=== PATIENT | male | born 1990 | race Caucasian/White ===

== ENCOUNTER 2018-10-28 15:40 | Inpatient (IN) | payer OTHER, MEDICAID ==
[~2018-10-28] VITALS: Ht 177.8 cm; Wt 53.1 kg
[2018-10-28] MEDS ORDERED: HALOPERIDOL 5 MG TABLET PO PRN (19:45)
[2018-10-28 20:36] VITALS: BP 110/70
[2018-10-28 20:58] VITALS: BP 105/71
[2018-10-28] MEDS ORDERED: IBUPROFEN 400 MG TABLET PO PRN (21:15)
[2018-10-28] MEDS ORDERED: ACETAMINOPHEN 325 MG TABLET PO PRN (21:15)
[2018-10-28] MEDS ORDERED: LOPERAMIDE HCL 2 MG CAPSULE PO PRN (21:15)
[2018-10-28] MEDS ORDERED: ALBUTEROL SULFATE HFA 90 MCG/PUFF 8 GM INHALER IH PRN (21:15)
[2018-10-28] MEDS ORDERED: GuaiFENesin/D-METHORPHAN [SUGAR-FREE] 200-20MG/10 ML SYRUP UDCUP PO PRN (21:15)
[2018-10-28] MEDS ORDERED: DOCUSATE SODIUM 100 MG CAPSULE PO PRN (21:15)
[2018-10-28] MEDS ORDERED: MAG HYDROX/AL HYDROX/SIMETH ES 30 ML SUSPENSION UDCUP PO PRN (21:15)
[2018-10-28] MEDS ORDERED: CloNIDine HCL 0.1 MG TABLET PO PRN (21:15)
[2018-10-28] MEDS ORDERED: ONDANSETRON HCL 4 MG TABLET PO PRN (21:15)
[2018-10-28] MEDS ORDERED: PETROLATUM,WHITE 71 GM JELLY TP PRN (21:15)
[2018-10-28] MEDS ORDERED: MAGNESIUM HYDROXIDE SUSPENSION 30 ML UDCUP PO PRN (21:15)
[2018-10-28] MEDS: ZOLPIDEM TARTRATE 10 MG TABLET PO PRN (21:55)
[2018-10-29 06:20] VITALS: BP 110/67
[2018-10-29 08:00] VITALS: BP 126/73
[2018-10-29 08:51] LABS: BASOPHILS % (AUTO) 0.5 % (0.0-2.0); EOSINOPHILS % (AUTO) 3.8 % (1.0-6.0); HEMATOCRIT 46.1 % (41-53); HEMOGLOBIN 15.2 g/dL (13.5-17.5); LYMPHOCYTES # (AUTO) 2.1 K/uL (1.0-4.8); LYMPHOCYTES % (AUTO) 31.3 % (22.0-44.0); MEAN CORPUSCULAR HEMOGLOBIN 30.2 pg (26.0-34.0); MEAN CORPUSCULAR HGB CONC 33.1 G/dL (31.0-37.0); MEAN CORPUSCULAR VOLUME 91 fL (80-100); MONOCYTES # (AUTO) 0.6 K/uL (0.1-1.0); MONOCYTES % (AUTO) 8.8 % (2.0-9.0); NEUTROPHILS # (AUTO) 3.8 K/uL (1.8-7.7); NEUTROPHILS % (AUTO) 55.6 % (40.0-70.0); PLATELET COUNT (AUTO) 240 K/uL (150-450); RED BLOOD CELL COUNT(AUTO) 5.05 MIL/uL (4.50-5.90); RED CELL DISTRIBUTION WIDTH 12.9 % (11.5-14.5)
[2018-10-29] MEDS: NICOTINE 14 MG/24 HOUR PATCH TD PRN (09:15)
[2018-10-29 09:38] LABS: ALANINE AMINOTRANSFERASE 63 U/L (12-78); ALBUMIN 3.7 g/dL (3.4-5.0); ALKALINE PHOSPHATASE 68 U/L (46-116); ANION GAP 4 mmol/L (8-16); ASPARTATE AMINOTRANSFERASE 34 U/L (15-37); BILIRUBIN,TOTAL 0.4 mg/dL (0.1-1.0); CALCIUM, TOTAL 9.3 mg/dL (8.8-10.5); CARBON DIOXIDE 33 mmol/L (22-29); CHLORIDE 102 mmol/L (98-107); CHOL/HDL RATIO 3.2 (4.2-7.3); CHOLESTEROL 142 mg/dL (131-200); CREATININE 0.77 mg/dL (0.60-1.30); FREE T4 (FREE THYROXINE) 0.66 ng/dL (0.76-1.46); GLOMERULAR FILTR. RATE CALC > 60 mL/min (>60); GLUCOSE,RANDOM 88 mg/dL (70-110); HDL CHOLESTEROL 44 mg/dL (40-60); LDL CHOL (CALC.) 84 mg/dL (0-130); POTASSIUM 3.5 mmol/L (3.5-5.1); SODIUM SERUM 139 mmol/L (136-145); THYROID STIMULATING HORMONE 0.84 uIU/mL (0.36-3.74); TOTAL PROTEIN, SERUM 7.7 g/dL (6.4-8.2); TRIGLYCERIDES 70 mg/dL (15-150); UREA NITROGEN, BLOOD 21 mg/dL (7-18)
[2018-10-29 09:40] LABS: HEMOGLOBIN A1C 5.6 % (4.5-6.2)
[2018-10-29 16:00] VITALS: BP 123/67
[2018-10-29] MEDS: LORazepam 2 MG TABLET PO PRN (16:29)
[2018-10-29] MEDS: OLANZapine 5 MG RAPDIS TABLET PO SCH (16:29)
[2018-10-29] MEDS: ZOLPIDEM TARTRATE 10 MG TABLET PO PRN (20:31)
[2018-10-30 04:46] VITALS: BP 115/70
[2018-10-30 08:08] VITALS: BP 110/70
[2018-10-30] MEDS: OLANZapine 5 MG RAPDIS TABLET PO SCH ×2 (08:08→16:20)
[2018-10-30] MEDS: NICOTINE 14 MG/24 HOUR PATCH TD PRN (08:24)
[2018-10-30 16:00] VITALS: BP 124/62
[2018-10-30] MEDS: LORazepam 2 MG TABLET PO PRN (16:20)
[2018-10-30] MEDS: ZOLPIDEM TARTRATE 10 MG TABLET PO PRN (21:04)
[2018-10-31 05:30] VITALS: BP 122/72
[2018-10-31] MEDS: OLANZapine 5 MG RAPDIS TABLET PO SCH ×2 (08:10→16:38)
[2018-10-31 08:47] VITALS: BP 120/69
[2018-10-31 14:18] VITALS: BP 121/70
[2018-10-31 17:50] VITALS: BP 123/73
[2018-11-01 06:55] VITALS: BP 122/78
[2018-11-01 08:45] VITALS: BP 125/86
[2018-11-01] MEDS: OLANZapine 5 MG RAPDIS TABLET PO SCH ×2 (08:51→16:52)
[2018-11-01 16:42] VITALS: BP 119/60
[2018-11-01] MEDS: ZOLPIDEM TARTRATE 10 MG TABLET PO PRN (20:38)
[2018-11-02 04:48] VITALS: BP 120/82
[2018-11-02] MEDS ORDERED: OLAN5TAB2 PO (04:48)
== END 2018-11-02 07:05 | disposition home or self-care (01) | DRG 885 ==
LOC: B3A 20:33 → B2S 10-31 13:45
PROVIDERS: ADMIT Psychiatry & Neurology Child & Adolescent Psychiatry; ATTEND Psychiatry & Neurology Child & Adolescent Psychiatry
DX: F25.0 Schizoaffective disorder, bipolar type (principal); R45.851 Suicidal ideations; F17.200 Nicotine dependence, unspecified, uncomplicated; F19.10 Other psychoactive substance abuse, uncomplicated; K21.9 Gastro-esophageal reflux disease without esophagitis; F41.9 Anxiety disorder, unspecified; Z79.899 Other long term (current) drug therapy; Z71.6 Tobacco abuse counseling; Z71.51 Drug abuse counseling and surveillance of drug abuser
CPT/HCPCS: 83036; 84439; 84443; 87081